=== PATIENT | male | born 1950 | race Caucasian/White ===

== ENCOUNTER 2019-10-01 11:50 | Inpatient (IN) | payer MEDICARE, OTHER ==
[~2019-10-01] VITALS: Ht 172.7 cm; Wt 83.9 kg
--- NOTE | 2019-10-01 12:03 | NUR ---
[facility] from [facility] For "agressive behavior, Refusing to take meds/and ADL-shower", pt to bed 15, -sob, nad noted, vss, pending md mcarthur
[2019-10-01] MEDS ORDERED: TRAZ-257 PO (12:16)
[2019-10-01] MEDS ORDERED: QUET400T PO (12:16)
[2019-10-01] MEDS ORDERED: QUET300T2 PO (12:16)
[2019-10-01] MEDS ORDERED: CLON0.5T4 PO (12:16)
[2019-10-01] MEDS ORDERED: NA P133E RC (12:16)
[2019-10-01] MEDS ORDERED: MAGN400O6 PO (12:16)
[2019-10-01] MEDS ORDERED: BISA10SU11 RC (12:16)
[2019-10-01] MEDS ORDERED: PARO30TA4 PO (12:16)
[2019-10-01] MEDS ORDERED: CLON1TAB12 PO (12:16)
[2019-10-01] MEDS ORDERED: VALP250S3 PO (12:16)
[2019-10-01] MEDS ORDERED: ACET-868 PO (12:16)
--- NOTE | 2019-10-01 13:08 | NUR ---
CALLED ART FOR CRISIS EVAL.
[2019-10-01 13:14] LABS: CALCIUM, SERUM 9.6 mg/dL (8.5-10.1); CARBON DIOXIDE 25 mmol/L (21-32); CHLORIDE 105 mmol/L (98-107); CREATININE 1.7 mg/dL (0.6-1.3); GLUCOSE 123 mg/dL (74-106); POTASSIUM 4.3 mmol/L (3.5-5.1); SODIUM SERUM 141 mmol/L (136-145); UREA NITROGEN, BLOOD 30 mg/dL (7-18)
[2019-10-01 13:18] LABS: BASOPHILS # (AUTO) 0.1 /CMM (0.0-0.2); EOSINOPHILS % (AUTO) 0.3 % (0.0-6.0); HEMATOCRIT 50 % (39-51); HEMOGLOBIN 16.8 g/dL (13.5-17.5); LYMPHOCYTES # (AUTO) 1.7 /CMM (0.8-4.8); LYMPHOCYTES % (AUTO) 19.8 % (20.0-44.0); MEAN CORPUSCULAR HGB CONC 34 g/dl (31.0-36.0); MEAN CORPUSCULAR VOLUME 94 fL (80-96); MONOCYTES # (AUTO) 0.8 /CMM (0.1-1.30); MONOCYTES % (AUTO) 9.1 % (2.0-12.0); NEUTROPHILS % (AUTO) 69.8 % (43.0-81.0); PLATELET COUNT (AUTO) 160 /CMM (150-450); RED BLOOD CELL COUNT(AUTO) 5.29 MIL/uL (4.5-6.0); WHITE BLOOD COUNT (AUTO) 8.6 K/uL (4.3-11.0)
[2019-10-01 13:19] LABS: ALANINE AMINOTRANSFERASE 25 U/L (12-78); ALBUMIN 3.8 g/dL (3.4-5.0); ALCOHOL, BLOOD 4 mg/dL (0-0); ALKALINE PHOSPHATASE 105 U/L (46-116); ASPARTATE AMINOTRANSFERASE 32 U/L (15-37); BILIRUBIN,DIRECT 0.2 mg/dL (0.0-0.2); SALICYLATE 2.9 mg/dL (2.8-20.0); TOTAL PROTEIN, SERUM 9.1 g/dL (6.4-8.2)
[2019-10-01 13:20] LABS: ACETAMINOPHEN 0 ug/ml (10-30)
[2019-10-01 13:48] LABS: LYMPHOCYTES % (MANUAL) 15 % (16-48); MONOCYTES % (MANUAL) 8 % (0-11.0); NEUTROPHILS % (MANUAL) 77 (42-76)
--- NOTE | 2019-10-01 14:24 | NUR ---
NURSING SUP GAVE GPS BED 214A.
[2019-10-01 15:40] LABS: BILIRUBIN,URINE Negative (NEGATIVE); BLOOD, URINE Negative Ery/uL (NEGATIVE); COLOR,URINE Yellow (YELLOW); KETONES,URINE 15 (NEGATIVE); NITRITE, URINE Negative (NEGATIVE); PH,URINE 5.5 (5.0-8.0); PROTEIN,URINE 30 mg/dl (NEGATIVE); UGLUCOSE Negative (NEGATIVE); UROBILINOGEN,URINE 0.2 EU/dL (0.2)
[2019-10-01 15:44] LABS: APPEARANCE,URINE SLIGHTLY CLOUDY (CLEAR); LEUKOCYTE ESTERASE ,URINE TRACE (NEGATIVE)
[2019-10-01 15:50] LABS: BACTERIA,URINE Moderate /HPF (None Seen); MUCUS,URINE Few /LPF (None Seen); RBC,URINE 0-2 /HPF (0-2); SQUAMOUS EPITHELIAL CELL,UR Few /HPF (None Seen)
--- NOTE | 2019-10-01 17:16 | NUR ---
report given rosemary nurse at [facility]
--- NOTE | 2019-10-01 17:51 | NUR ---
pt transported to [facility]
[2019-10-01 17:59] VITALS: BP 153/91
[2019-10-01] MEDS ORDERED: MAGNESIUM HYDROXIDE 30 ML UDC PO PRN ×2 (18:00→18:30)
[2019-10-01] MEDS ORDERED: TEMAZEPAM 7.5 MG CAPSULE PO PRN (18:00)
[2019-10-01] MEDS ORDERED: MAG HYDROX/AL HYDROX/SIMETH 30 ML UDC PO PRN (18:00)
[2019-10-01] MEDS ORDERED: BLOOD SUGAR DIAGNOSTIC 1 EACH STRIP IN ONE (18:00)
[2019-10-01] MEDS ORDERED: ACETAMINOPHEN 325 MG TABLET PO PRN ×2 (18:00→18:30)
[2019-10-01] MEDS ORDERED: NA PHOS,M-B/NA PHOS,DI-BA 1 EA ENEMA RC PRN (18:30)
[2019-10-01] MEDS ORDERED: BISACODYL SUPP (10 MG) 10 MG/SUPP.RECT SUPP.RECT RC PRN (18:30)
--- NOTE | 2019-10-01 18:55 | NUR ---
Pt. arrived in the unit via a wheelchair and wheeled by ER staff. Dr. Bui made aware of the admission and gave orders. V/S taken and contraband done. Pt. on Conservatorship and called the conservator Lynn Freedman at [phone] and left a message. Will endorse to incoming RN for the completion of the admission.
--- NOTE | 2019-10-01 19:30 | NUR ---
GPS ADMISSION NOTES: ADMITTED THIS 69-Y/O, MALE, BROUGHT IN BY AMBULANCE FROM [facility] FOR AGGRESSIVE BEHAVIOR, REFUSAL TO TAKE MEDICATION OVER THE LAST COUPLE OF DAYS, HAVING DIFFICULTY WITH ACTIVITIES OF DAILY LIVING AND REFUSES TO SHOWER. PATIENT IS CONSERVED. UPON FACE TO FACE ASSESSMENT, PATIENT IS A&O X1, UNKEMPT, DISHEVELED, PT. UNABLE TO GIVE MEANINGFUL CONVERSATION. UNCOOPERATIVE WITH CARE, REFUSES TO SHOWER. IN NO APPARENT DISTRESS NOTED. DENIES SI/HI/AVH AT THIS TIME. SKIN ASSESSMENT DONE. PATIENT REFUSED TO SIGN ADMISSION CONSENTS. PT. STATED "I'M TIRED". PT'S RIGHTS HANDBOOK & PT. GUIDELINES BOOK GIVEN & DISCUSSED TO THE PATIENT. PT BELONGINGS WERE INVENTORIED & CHECKED FOR CONTRABAND. PT. IS UNDER THE PSYCHIATRIC CARE OF DR. ONEILL, ORDERS OBTAINED & UNDER THE MEDICAL CARE OF DR. PORRAS. PATIENT EDUCATED TO THE USE OF CALL AZUL. BED ALARM ON. ENVIRONMENTAL SAFETY CHECK DONE. BED LOCKED & IN LOW POSITION. WILL CONTINUE TO MONITOR Q15 MINUTES FOR SAFETY & BEHAVIOR.
[2019-10-01] MEDS ORDERED: DIVALPROEX SODIUM 500 MG TABLET.DR PO SCH (21:00)
[2019-10-01 22:09] VITALS: BP 139/84
--- NOTE | 2019-10-02 06:41 | NUR ---
GPS-RN PATIENT REFUSED BLOOD DRAW AND REFUSED AM CARE. EXPLAINED RISKS AND BENEFITS BUT PT. CONTINUES TO REFUSE. WILL ENDORSE TO THE DAY SHIFT NURSE FOR CONTINUITY OF CARE.
[2019-10-02] MEDS: NICOTINE PATCH (21MG) 21 MG PATCH.TD24 TD SCH (08:10)
--- NOTE | 2019-10-02 10:03 | NUR ---
FACILITY CONTACT: SW received a call from KRISTA, financial coordinator at [facility] () [address] [facility], [address] stating facility will not be taking pt back due to his aggressive behavior and non-compliance with medications.
--- NOTE | 2019-10-02 10:14 | NUR ---
FACILITY CONTACT: AMOR spoke with Levi, case packer and sealer at [facility] ([facility]) [address] [place], [address] for collateral information. Per Levi [facility] facility does not have [facility] 09/25/19 and discharged on 10/01/19. Levi palafox pt has a Guardian and before being admitted to their facility pt was at the [facility] in [place].
--- NOTE | 2019-10-02 10:23 | NUR ---
PUBLIC GUARDIAN: AMOR contacted pts Public Guardian Gustabojuanpablo Carl Garcianer [phone] and left a voicemail informing her that facility will not be accepting pt back due to his behavior and will need placement.
--- NOTE | 2019-10-02 13:43 | NUR ---
INITIAL DISCHARGE PLAN: AMOR received a call from , early childhood education coordinator at [facility] (SNF) [address] [place], [address] stating facility will not be taking pt back due to his aggressive behavior and non-compliance with medications. Pt needs SNF placement. AMOR will coordinate placement with [facility] PUBLIC GUARDIAN Lynn Ritter [phone]. AMOR will help form a safe and proper discharge in collaboration with .
[2019-10-02] MEDS: QUETIAPINE FUMARATE 100 MG TABLET PO SCH ×2 (14:30→17:00)
[2019-10-02] MEDS: PAROXETINE HCL 20 MG TABLET PO SCH (14:30)
--- NOTE | 2019-10-02 17:20 | NUR ---
RN NOTE- PT REFUSED MEDS. STATED , "I AINT TAKING NOTHING." EXPLAINED MEDS AND BENEFITS..
--- NOTE | 2019-10-02 17:51 | NUR ---
DR. PEREZ NOTIFIED THAT PT. REFUSED MEDS INCLUDING SEROQUEL AND ORDERED HALDOL 5 MG IM FOR EACH REFUSAL OF SEROQUEL PO. PT. IS CONSERVED.
[2019-10-02] MEDS ORDERED: HALOPERIDOL LACTATE INJ 5 MG/ML VIAL IM ONE (18:00)
[2019-10-02] MEDS: HALOPERIDOL LACTATE INJ 5 MG/ML VIAL IM PRN (18:15)
--- NOTE | 2019-10-02 18:15 | NUR ---
RN NOTE- HALDOL 5 MG IM GIVEN WITH SECURITY AND STAFF. PT REQUESTED IM AFTER DISCUSSING MEDS WITH HIM. TOLERATED WELL.
--- NOTE | 2019-10-02 18:34 | NUR ---
RN NOTE- MD ORDERED HALDOL 5 MG IM IF PT REFUSES SEROQUEL PO RX.
[2019-10-02] MEDS: TRAZODONE 50 MG TABLET PO SCH (22:00)
--- NOTE | 2019-10-02 22:04 | NUR ---
GPS RN NOTES: PT REFUSED TRAZODONE 200MG PO @2200 ORDERED. PT REFUSED TO CHECK VITALS. EXPLAINED RISKS AND BENEFITS. STILL REFUSED X3. PT BECAME EASILY AGITATED. PT STATED, " NO. NO. NO." CONTINUE TO MONITOR.
[2019-10-03 08:00] VITALS: BP 153/90
[2019-10-03] MEDS: clonazePAM 0.5 MG TABLET PO PRN (08:09)
[2019-10-03] MEDS: PAROXETINE HCL 20 MG TABLET PO SCH (08:10)
[2019-10-03] MEDS: QUETIAPINE FUMARATE 100 MG TABLET PO SCH ×2 (08:10→16:10)
[2019-10-03] MEDS: NICOTINE PATCH (21MG) 21 MG PATCH.TD24 TD SCH (08:17)
[2019-10-03 16:00] VITALS: BP 115/59
[2019-10-03] MEDS: TRAZODONE 50 MG TABLET PO SCH (21:16)
--- NOTE | 2019-10-04 06:44 | NUR ---
GPS-RN PATIENT IS UNCOOPERATIVE. REFUSED BLOOD DRAW AND AM CARE. EXPLAINED RISKS AND BENEFITS BUT PT. CONTINUES TO REFUSE. WILL ENDORSE TO THE DAY SHIFT NURSE FOR CONTINUITY OF CARE.
[2019-10-04] MEDS: PAROXETINE HCL 20 MG TABLET PO SCH (08:14)
[2019-10-04] MEDS: QUETIAPINE FUMARATE 100 MG TABLET PO SCH ×2 (08:14→16:05)
[2019-10-04] MEDS: NICOTINE PATCH (21MG) 21 MG PATCH.TD24 TD SCH (08:16)
[2019-10-04] MEDS: TRAZODONE 50 MG TABLET PO SCH (21:01)
--- NOTE | 2019-10-04 21:05 | NUR ---
GPS-RN PATIENT REFUSED WEEKLY SKIN ASSESSMENT DESPITE OF EDUCATION PROVIDED. PATIENT CONTINUES TO REFUSE. WILL ENDORSE TO THE DAY SHIFT NURSE FOR CONTINUITY OF CARE.
[2019-10-05 08:00] VITALS: BP 122/86
[2019-10-05] MEDS: PAROXETINE HCL 20 MG TABLET PO SCH (08:35)
[2019-10-05] MEDS: QUETIAPINE FUMARATE 100 MG TABLET PO SCH ×3 (08:35→17:00)
[2019-10-05] MEDS: NICOTINE PATCH (21MG) 21 MG PATCH.TD24 TD SCH (08:36)
[2019-10-05] MEDS: clonazePAM 0.5 MG TABLET PO PRN (15:48)
--- NOTE | 2019-10-05 15:49 | NUR ---
RN NOTE- PT AGITATED. KRISTINA. KLONOPIN GIVEN AT THIS TIME. CONTINUE TO MONITOR PT BEHAVIOR.
[2019-10-05 16:00] VITALS: BP 126/81
--- NOTE | 2019-10-05 17:05 | NUR ---
RN NOTE- PT REFUSING MEDS. USED PROFANITY. POSTURING. THREATENING BEHAVIOR. "I'LL DO SOMETHING...I AINT TAKING ANYTHING." PT HAS BEEN URINATING ON UNIT FLOOR ALL DAY. FIRST IN ROOM, THEN IN HALLWAYS... REDIRECTED TO NO AVAIL. PT CONTINUES TO DECLINE IN HIS BEHAVIORS. DR. ONEILL CALLED
--- NOTE | 2019-10-05 17:22 | NUR ---
RN NOTE- DR ONEILL ORDERED HALDOL 5 MG IM X ONE DOSE.
[2019-10-05] MEDS ORDERED: HALOPERIDOL LACTATE INJ 5 MG/ML VIAL IM ONE (17:30)
--- NOTE | 2019-10-05 17:30 | NUR ---
RN NOTE- APPROACHED PT REGARDING IM HALDOL WITH STAFF AND SECURITY. PT IMMEDIATELY TOOK A SWING AT [facility]. HE WAS IMMEDIATELY GRABBED BY STAFF AND PHYSICALLY TAKEN TO HIS ROOM AND PLACED ON BED. HALDOL 5 MG GIVEN AT THIS TIME. WILL MONITOR BEHAVIOR.
[2019-10-05 20:42] VITALS: BP 136/88
[2019-10-05] MEDS: TRAZODONE 50 MG TABLET PO SCH (22:07)
--- NOTE | 2019-10-06 07:11 | NUR ---
RN NOTES : PT. WAS MED COMPLIANT , PT. TOOK NIGHT SCHEDULE MED, PT. BEHAVIOUR UNCOOPERTIVE, EASILY AGITAED, NEEDY, DEMENDING, PT. URINATING IN HALLWAY AND IN PT. ROOM, URINAL PROVIDED, UNABLE TO REDIECT AND PT. NOT FOLLWING ANY REDIRECTIONS, OFFERED KLONOPIN PRN , PT. REFUSED TO TAKING ,ENDORSED TO DAY NURSE FOR CONTINUITY OF CARE.
[2019-10-06 08:00] VITALS: BP 130/71
[2019-10-06] MEDS: QUETIAPINE FUMARATE 100 MG TABLET PO SCH ×2 (08:41→17:06)
[2019-10-06] MEDS: PAROXETINE HCL 20 MG TABLET PO SCH (08:42)
[2019-10-06] MEDS: clonazePAM 0.5 MG TABLET PO PRN (08:42)
[2019-10-06] MEDS: NICOTINE PATCH (21MG) 21 MG PATCH.TD24 TD SCH (08:46)
--- NOTE | 2019-10-06 10:41 | NUR ---
SNF REFERRAL: AMOR faxed SNF referral to [facility] ([facility]) [address] [facility] [address] for review.
--- NOTE | 2019-10-06 11:22 | NUR ---
SNF REFERRAL: SW received a call from Ward admission coordinator at [facility] ([facility]) [address] [address] stating pt has been accepted to the facility.
[2019-10-06 14:30] LABS: URINE TOTAL PROTEIN 9.2 mg/dL (0-11.9)
[2019-10-06 15:34] LABS: APPEARANCE,URINE CLOUDY (CLEAR); BILIRUBIN,URINE NEGATIVE (NEGATIVE); BLOOD, URINE NEGATIVE Ery/uL (NEGATIVE); COLOR,URINE YELLOW (YELLOW); KETONES,URINE NEGATIVE (NEGATIVE); LEUKOCYTE ESTERASE ,URINE NEGATIVE (NEGATIVE); NITRITE, URINE NEGATIVE (NEGATIVE); PROTEIN,URINE NEGATIVE (NEGATIVE); UGLUCOSE NEGATIVE (NEGATIVE); UROBILINOGEN,URINE 0.2 EU/dL (0.2)
[2019-10-06 15:40] LABS: BACTERIA,URINE 3+ /HPF (None Seen); RBC,URINE NONE SEEN /HPF (0-2); WBC,URINE NONE SEEN /HPF (0-3)
[2019-10-06 16:00] VITALS: BP 124/67
[2019-10-06 16:27] LABS: EOSINOPHIL,URINE None Seen
[2019-10-06 20:15] VITALS: BP 131/87
[2019-10-06] MEDS: TRAZODONE 50 MG TABLET PO SCH (21:29)
--- NOTE | 2019-10-06 22:22 | NUR ---
GPS-RN PATIENT REFUSED SCHEDULED MED TRAZADONE FOR TONIGHT. DESPITE OF EXPLANATION THE RISKS AND BENEFITS PATIENT CONTINUES TO REFUSE. WILL CONTINUE TO MONITOR.
[2019-10-07] MEDS: QUETIAPINE FUMARATE 100 MG TABLET PO SCH ×2 (08:48→17:23)
[2019-10-07] MEDS: PAROXETINE HCL 20 MG TABLET PO SCH (08:48)
[2019-10-07] MEDS: NICOTINE PATCH (21MG) 21 MG PATCH.TD24 TD SCH (09:00)
[2019-10-07 16:00] VITALS: BP 115/78
[2019-10-07 20:11] VITALS: BP 120/80
[2019-10-07] MEDS: TRAZODONE 50 MG TABLET PO SCH (22:18)
[2019-10-08] MEDS: NICOTINE PATCH (21MG) 21 MG PATCH.TD24 TD SCH (09:00)
[2019-10-08] MEDS: PAROXETINE HCL 20 MG TABLET PO SCH (09:27)
[2019-10-08] MEDS: QUETIAPINE FUMARATE 100 MG TABLET PO SCH ×2 (16:31→16:46)
--- NOTE | 2019-10-08 16:47 | NUR ---
GPS/RN PT AGREED TO TAKE SEROQUEL WHEN HE SAW THE SYRINGE WITH HALDOL. HALDOL 5MG IM WAS WASTED
[2019-10-08 20:29] VITALS: BP 146/87
[2019-10-08] MEDS: TRAZODONE 50 MG TABLET PO SCH (21:54)
--- NOTE | 2019-10-08 21:54 | NUR ---
GPS RN NOTES: PT REFUSED TRAZODONE 200MG ORDERED @2154. PT STATED, "NO! LET ME SLEEP." PT NOTED AGITATED. EXPLAIN RISKS AND BENEFITS. STILL REFUSED X3. CONTINUE TO MONITOR.
[2019-10-09] MEDS: NICOTINE PATCH (21MG) 21 MG PATCH.TD24 TD SCH (08:29)
[2019-10-09] MEDS: PAROXETINE HCL 20 MG TABLET PO SCH (08:33)
[2019-10-09] MEDS: HALOPERIDOL LACTATE INJ 5 MG/ML VIAL IM PRN (08:33)
[2019-10-09] MEDS: QUETIAPINE FUMARATE 100 MG TABLET PO SCH ×2 (08:33→17:26)
[2019-10-09] MEDS: TRAZODONE 50 MG TABLET PO SCH (21:29)
[2019-10-10] MEDS: QUETIAPINE FUMARATE 100 MG TABLET PO SCH ×2 (08:23→16:28)
[2019-10-10] MEDS: PAROXETINE HCL 20 MG TABLET PO SCH (08:24)
[2019-10-10] MEDS: NICOTINE PATCH (21MG) 21 MG PATCH.TD24 TD SCH (08:27)
[2019-10-10] MEDS ORDERED: HALOPERIDOL LACTATE INJ 5 MG/ML VIAL IM STA (12:14)
[2019-10-10] MEDS ORDERED: diphenhydrAMINE HCL 50 MG/ML VIAL IM STA (12:14)
--- NOTE | 2019-10-10 13:09 | NUR ---
TODAY AROUND 1215 PATIENT BECAME VERY AGITATED AND ANGRY. HE YELLED AT NURSE TO "GET AWAY FROM HIM" AND SECLUDED HIMSELF IN HIS ROOM. WHEN QUILT STUFFER CAME TO OFFER MEAL, HE YELLED AT HER AND TOOK A SWING AT HER. DR CASSIDY ALSO MADE AN ATTEMPT TO VISIT THE PATIENT AND NOTED HE WAS ANGRY. DUE TO ESCALATING BEHAVIOR DR CASSIDY ORDERED 5MG HALDOL IM AND 25MG BENADRYL IM ONCE AROUND 1230.
--- NOTE | 2019-10-10 19:30 | NUR ---
GPS RN NOTE, RECEIVED PATIENT AWAKE AND IN BED, NO S/S OR COMPLAINTS OF PAIN AT THIS TIME. PATIENT IS DISPLAYING NO S/S OF APPARENT DISTRESS AT THIS TIME. PATIENT BREATHING IS UNLABORED WITH EQUAL RISE AND FALL OF THE CHEST. PATIENT IS ALERT AND ORIENTED X 2 ON ROOM AIR WITH A SPO2 95%. PATIENT IS MED SELECTIVE, ANXIOUS AT TIMES, SUSPICIOUS, PARANOID, AND UNCOOPERATIVE. PATIENT DENIES SUICIDAL AND HOMICIDAL IDEATIONS AT THIS TIME. PATIENT ASSISTED WITH TURNING AND REPOSITIONING Q2HR AND PRN FOR COMFORT AND CIRCULATION. PATIENT HAS NO NEEDS AT THIS TIME. PATIENT EDUCATED ON THE USE OF THE CALL AZUL. PATIENT BED SIDE RAILS UP X 2 FOR SAFETY. PATIENT BED IS LOCKED, LOW, WITH BED ALARM ON. WILL CONTINUE TO MONITOR THIS PATIENT Q15 MINUTES WITH THE HELP OF STAFF TO MAINTAIN SAFETY.
[2019-10-10 20:18] VITALS: BP 139/82
[2019-10-10] MEDS: TRAZODONE 50 MG TABLET PO SCH (21:55)
[2019-10-11] MEDS: NICOTINE PATCH (21MG) 21 MG PATCH.TD24 TD SCH (09:00)
[2019-10-11] MEDS: PAROXETINE HCL 20 MG TABLET PO SCH (09:16)
[2019-10-11] MEDS: QUETIAPINE FUMARATE 100 MG TABLET PO SCH ×2 (09:17→16:28)
[2019-10-11] MEDS: clonazePAM 0.5 MG TABLET PO PRN (14:07)
--- NOTE | 2019-10-11 14:07 | NUR ---
RN NOTE- PT W ANXIETY, AGITATION. KLONOPIN 0.5 MG GIVEN.
[2019-10-11 20:56] VITALS: BP 120/74
[2019-10-11] MEDS: TRAZODONE 50 MG TABLET PO SCH (21:42)
[2019-10-12] MEDS: PAROXETINE HCL 20 MG TABLET PO SCH (09:01)
[2019-10-12] MEDS: QUETIAPINE FUMARATE 100 MG TABLET PO SCH (09:01)
[2019-10-12] MEDS: NICOTINE PATCH (21MG) 21 MG PATCH.TD24 TD SCH (09:05)
--- NOTE | 2019-10-12 09:54 | NUR ---
DISCHARGE NOTE: Pt will be discharged at 1:30pm via [facility] to [facility] Address: [address] [place] [address] Room 23A. Pts Conservator Lynn Ritter [phone] has been notified via voicemail. Pts mood is paranoid and anxious with congruent affect. Pt denied visual/auditory hallucinations and denied suicidal/homicidal ideation. Pt will be under the care of Psychiatrist: Dr. Noam Johnson Address: [address] [address] [address] and Tire Installer: Dr Ramos Address: [address] [address] [phone]. The multidisciplinary exit care form was done, printed, signed, and given to the patient.
--- NOTE | 2019-10-12 11:30 | NUR ---
REPORT CALLED TO DAMION PELLETIER AT [facility] [phone]
--- NOTE | 2019-10-12 14:47 | NUR ---
RN NOTE: 69 YEAR OLD MALE DISCHARGED TO [facility] IN STABLE CONDITION. COMPLIANT WITH MEDICATIONS, COOPERATIVE WITH TREATMENT PLAN. PATIENT DENIES SI/HI AND INSTRUCTED TO GO TO THE CLOSEST ER IF DEVELOPING SI/HI. BEHAVIOR IMPROVED, PSYCHIATRIC TREATMENT PLANS MET, MEDICAL TREATMENT PLANS DEFERRED FOR CONTINUAL MONITORING. EDUCATED PT ABOUT AFTER CARE PLAN AND COPY PROVIDED. RETURNED PERSONAL BELONGINGS TO PATIENT. MEDICATIONS RECONCILED WITH DR. ONEILL AND DR. DEGROOT. REPORT GIVEN TO DAMION PELLETIER AT [facility] FOR CONTINUITY OF CARE. PT IS CONSERVED. DISCHARGE PAPERWORK PROVIDED. SKIN INTACT ON ADMIT AND DISCHARGE. PT LEFT THE UNIT AT 1447 VIA AMBULANCE/GURNEY WITH EMS
== END 2019-10-12 14:45 | DRG 885 ==
LOC: ER 11:53 → GPS 17:24
PROVIDERS: ADMIT Psychiatry & Neurology Psychiatry; ATTEND Internal Medicine
DX: F25.0 Schizoaffective disorder, bipolar type (principal); N17.0 Acute kidney failure with tubular necrosis; G93.40 Encephalopathy, unspecified; Z87.442 Personal history of urinary calculi; F41.9 Anxiety disorder, unspecified; R32 Unspecified urinary incontinence; Z72.89 Other problems related to lifestyle; R73.9 Hyperglycemia, unspecified; F29 Unspecified psychosis not due to a substance or known physiological condition; Z91.14 Patient's other noncompliance with medication regimen
CPT/HCPCS: 36415; 80048-TC; 80076-TC; 80305; 81000-TC; 82570-TC; 82962-TC; 84155-TC; 84300-TC; 85025-TC; 87081-TC; 87086-TC; G0480; J1200; J1630